=== PATIENT | female | born 1945 | race Two or more races ===

== ENCOUNTER → 2024-02-10 | Outpatient (CLI) | payer OTHER, SELFPAY ==
[2024-02-10 10:16] LABS: Glucose Estimated Average 180 mg/dL (80-131); Hemoglobin A1C 7.9 % Hgb (4.8-6.0)
[2024-02-10 10:35] LABS: Alanine Aminotransferase 17 U/L (10-49); Albumin, Serum 4.3 gm/dL (3.4-4.8); Alkaline Phosphatase 78 U/L (46-116); Anion Gap 4 (7-16); Aspartate Amino Transferase 13 U/L (0-34); BUN/Creatinine Ratio 16 Ratio (12-20); Bilirubin,Total 0.4 mg/dL (0.3-1.2); Blood Urea Nitrogen 24 mg/dL (9-23); Calcium 9.7 mg/dL (8.3-10.6); Calcium (Corrected) 9.7 mg/dL (8.5-10.1); Carbon Dioxide 31.7 mMol/L (20.0-31.0); Chloride 102 mMol/L (98-107); Creatinine (Component) 1.5 mg/dL (0.6-1.3); Globulin 2.2 gm/dL (2.3-3.5); Glucose 104 mg/dL (74-106); Osmolality,Calculated 279 (275-295); Potassium 3.7 mMol/L (3.4-5.1); Sodium 138 mMol/L (136-145); Total Protein 6.5 gm/dL (5.7-8.2); eGFR 36 See Note
== END | disposition home or self-care (01) ==
PROVIDERS: PCP Family Medicine; Referring Provider Internal Medicine; Visit Provider Internal Medicine
DX: E11.65 Type 2 diabetes mellitus with hyperglycemia (principal)
CPT/HCPCS: 36415; 80053; 83036

== ENCOUNTER → 2024-03-10 | Outpatient (CLI) | payer OTHER, SELFPAY ==
[2024-03-10 16:13] LABS: Basophils % (Auto) 1 % (0-2.5); Eosinophils # (Auto) 0.2 Thou/mm3 (0.0-0.5); Eosinophils % (Auto) 3 % (0-10); Hematocrit 34.3 % (36.0-46.0); Hemoglobin 11.2 g/dL (12.0-16.0); Immature Granulocytes % (Auto) 0 % (0-0); Immature Granulocytes Auto 0.01 Thou/mm3 (0.00-0.00); Lymphocytes # (Auto) 0.9 Thou/mm3 (1.0-4.8); Lymphocytes % (Auto) 13 % (10-50); Mean Corpuscular HGB Conc 32.7 g/dl (31.0-37.0); Mean Corpuscular Hemoglobin 30.4 pg (25.0-35.0); Mean Corpuscular Volume 93 fL (80-100); Monocytes # (Auto) 0.5 Thou/mm3 (0.0-0.8); Monocytes % (Auto) 7 % (0-12); Neutrophils # (Auto) 5.1 Thou/mm3 (1.8-7.7); Neutrophils % (Auto) 76 % (37-80); Nucleated Red Blood Cell % 0 /100 WBC (0); Platelet Count 188 Thou/mm3 (140-440); RDW Standard Deviation 45.1 fL (36.4-46.3); Red Blood Count 3.69 Miln/mm3 (4.00-5.20); White Blood Count 6.7 Thou/mm3 (3.6-11.0)
[2024-03-10 16:34] LABS: Alanine Aminotransferase 22 U/L (10-49); Albumin, Serum 4.7 gm/dL (3.4-4.8); Alkaline Phosphatase 81 U/L (46-116); Anion Gap 8 (7-16); Aspartate Amino Transferase 26 U/L (0-34); BUN/Creatinine Ratio 17 Ratio (12-20); Bilirubin,Total 0.4 mg/dL (0.3-1.2); Blood Urea Nitrogen 29 mg/dL (9-23); Calcium 9.7 mg/dL (8.3-10.6); Calcium (Corrected) 9.7 mg/dL (8.5-10.1); Carbon Dioxide 30.1 mMol/L (20.0-31.0); Chloride 98 mMol/L (98-107); Creatinine (Component) 1.7 mg/dL (0.6-1.3); Globulin 2.4 gm/dL (2.3-3.5); Glucose 255 mg/dL (74-106); Osmolality,Calculated 286 (275-295); Potassium 3.8 mMol/L (3.4-5.1); Sodium 136 mMol/L (136-145); Total Protein 7.1 gm/dL (5.7-8.2); eGFR 31 See Note
[2024-03-20 19:51] LABS: Albumin 3.7 g/dL (3.8-4.8); Alpha-1-Globulin 0.3 g/dL (0.2-0.3); Beta-1-Globulin 0.4 g/dL (0.4-0.6); Beta-2-globulin 0.3 g/dL (0.2-0.5); Gamma Globulin 0.8 g/dL (0.8-1.7); Kappa Light Chain, Free 572.7 mg/L (3.3-19.4); Lambda Light Chain, Free 23.3 mg/L (5.7-26.3)
[2024-03-21 07:00] LABS: IgA, Serum* 134 mg/dL (70-320); IgG, Serum* 1029 mg/dL (600-1540); IgM, Serum* 17 mg/dL (50-300); Kappa/Lambda, Free Ratio 24.58 (0.26-1.65); Protein, total, serum 6.6 g/dL (6.1-8.1)
== END | disposition home or self-care (01) ==
PROVIDERS: PCP Family Medicine; Referring Provider Internal Medicine Hematology; Visit Provider Internal Medicine Hematology
DX: D47.2 Monoclonal gammopathy (principal); C90.00 Multiple myeloma not having achieved remission
CPT/HCPCS: 36415; 80053; 82784; 83521; 84155; 84165; 85025

== ENCOUNTER → 2024-06-24 | Outpatient (CLI) | payer OTHER, SELFPAY ==
[2024-06-24 14:43] LABS: Misc Send Out* See Sep Rpt
[2024-06-24 15:01] LABS: Collection Type, Urine Clean Catch
[2024-06-24 15:22] LABS: Basophils % (Auto) 1 % (0-2.5); Eosinophils # (Auto) 0.2 Thou/mm3 (0.0-0.5); Eosinophils % (Auto) 3 % (0-10); Hemoglobin 10.8 g/dL (12.0-16.0); Immature Granulocytes % (Auto) 0 % (0-0); Immature Granulocytes Auto 0.01 Thou/mm3 (0.00-0.00); Immature Reticulocyte Fraction 12.3 % (3.0-15.9); Lymphocytes # (Auto) 0.9 Thou/mm3 (1.0-4.8); Lymphocytes % (Auto) 15 % (10-50); Mean Corpuscular HGB Conc 32.7 g/dl (31.0-37.0); Mean Corpuscular Hemoglobin 29.6 pg (25.0-35.0); Mean Corpuscular Volume 90 fL (80-100); Monocytes # (Auto) 0.6 Thou/mm3 (0.0-0.8); Monocytes % (Auto) 10 % (0-12); Neutrophils # (Auto) 4.4 Thou/mm3 (1.8-7.7); Neutrophils % (Auto) 72 % (37-80); Nucleated Red Blood Cell % 0 /100 WBC (0); Platelet Count 245 Thou/mm3 (140-440); RDW Standard Deviation 46.2 fL (36.4-46.3); Red Blood Count 3.65 Miln/mm3 (4.00-5.20); Reticulocyte % (Auto) 1.5 % (0.5-1.5); Reticulocyte Absolute Auto 54.8 Biln/L (25.0-75.0); Reticulocyte Hgb Content 34.1 pg (28.0-35.0)
[2024-06-24 15:30] LABS: Bilirubin,Urine Negative (Negative); Blood,Urine Negative (Negative); Clarity,Urine Clear (Clear/Hazy); Color,Urine Lt-Yellow (Lt Yel-Yel); Glucose, Urine Negative (Negative); Hyaline Casts,Urine < 1 /hpf (0-1); Ketones,Urine Negative (Negative); Leukocyte Esterase,Urine Negative (Negative); Nitrite,Urine Negative (Negative); PH,Urine 6.5 (5.0-7.0); Protein,Urine Trace (Neg - Trace); RBC,Urine 2 /hpf (0-3); Specific Gravity,Urine 1.012 (1.001-1.035); Squamous Epithelial Cell,Urine 3 /hpf (0-5); Urobilinogen,Urine Negative mg/dL (0.0-1.0); WBC,Urine < 1 /hpf (0-5)
[2024-06-24 15:37] LABS: Creatinine,Random Urine 39 mg/dL (30-125); Protein Total, Random Urine 35 mg/dL (1-14)
[2024-06-24 15:37] LABS: Parathyroid Hormone Intact 76.1 pg/ml (18.5-88.0)
[2024-06-24 15:40] LABS: Alanine Aminotransferase 20 U/L (10-49); Albumin, Serum 4.5 gm/dL (3.4-4.8); Alkaline Phosphatase 80 U/L (46-116); Anion Gap 11 (7-16); Aspartate Amino Transferase 23 U/L (0-34); BUN/Creatinine Ratio 17 Ratio (12-20); Bilirubin,Total 0.4 mg/dL (0.3-1.2); Blood Urea Nitrogen 25 mg/dL (9-23); Calcium 9.9 mg/dL (8.3-10.6); Calcium (Corrected) 9.9 mg/dL (8.5-10.1); Carbon Dioxide 28.8 mMol/L (20.0-31.0); Chloride 101 mMol/L (98-107); Creatinine (Component) 1.5 mg/dL (0.6-1.3); Glucose 146 mg/dL (74-106); Magnesium 2.6 mg/dL (1.6-2.6); Osmolality,Calculated 288 (275-295); Phosphorous 3.8 mg/dL (2.4-5.1); Potassium 3.8 mMol/L (3.4-5.1); Sodium 141 mMol/L (136-145); Total Protein 7.3 gm/dL (5.7-8.2); eGFR 35 See Note
[2024-06-24 15:41] LABS: Vitamin B12 879 pg/mL (211-911); Vitamin D 25 Hydroxy Total 40.5 ng/mL (7.3-40.2)
[2024-06-24 16:23] LABS: Ferritin 107 ng/mL (7.3-270.7); Iron 34 mcg/dL (50-170); Percent Iron Saturation 11 % (20-55); Total Iron Binding Capacity 303 mcg/dL (250-425); Unsaturated Iron Binding 269 (225-295)
== END | disposition home or self-care (01) ==
LOC: COPL 14:16
PROVIDERS: PCP Family Medicine; Referring Provider Internal Medicine Nephrology; Visit Provider Internal Medicine Nephrology
DX: E55.9 Vitamin D deficiency, unspecified (principal); I10 Essential (primary) hypertension; E11.22 Type 2 diabetes mellitus with diabetic chronic kidney disease
CPT/HCPCS: 36415; 80069; 81001; 82247; 82306; 82570; 82607; 82728; 82746; 83540; 83550; 83735; 83970; 84075; 84155; 84156; 84450; 84460; 85025; 85046; 87086

== ENCOUNTER → 2024-07-11 | Outpatient (CLI) | payer OTHER, SELFPAY ==
[2024-07-11 08:42] LABS: Glucose Estimated Average 154 mg/dL (80-131)
[2024-07-11 08:51] LABS: Alanine Aminotransferase 24 U/L (10-49); Albumin, Serum 4.2 gm/dL (3.4-4.8); Albumin/Globulin Ratio 1.6 (1.2-2.2); Alkaline Phosphatase 84 U/L (46-116); Anion Gap 10 (7-16); Aspartate Amino Transferase 23 U/L (0-34); BUN/Creatinine Ratio 18 Ratio (12-20); Bilirubin,Total 0.4 mg/dL (0.3-1.2); Blood Urea Nitrogen 23 mg/dL (9-23); Calcium 9.5 mg/dL (8.3-10.6); Calcium (Corrected) 9.5 mg/dL (8.5-10.1); Carbon Dioxide 26.7 mMol/L (20.0-31.0); Cardiac Risk Estimate 2.1 RATIO (3.7-5.6); Chloride 105 mMol/L (98-107); Cholesterol 125 mg/dL (132-200); Creatinine (Component) 1.3 mg/dL (0.6-1.3); Globulin 2.7 gm/dL (2.3-3.5); Glucose 96 mg/dL (74-106); HDL Cholesterol 59 mg/dL (40-60); LDL Cholesterol,Calculated 55 mg/dL (0-130); Osmolality,Calculated 286 (275-295); Potassium 4.1 mMol/L (3.4-5.1); Sodium 142 mMol/L (136-145); Total Protein 6.9 gm/dL (5.7-8.2); Triglycerides 54 mg/dL (30-150); eGFR 42 See Note
== END | disposition home or self-care (01) ==
PROVIDERS: PCP Family Medicine; Referring Provider Internal Medicine; Visit Provider Internal Medicine
DX: E11.65 Type 2 diabetes mellitus with hyperglycemia (principal)
CPT/HCPCS: 36415; 80053; 80061; 83036

== ENCOUNTER → 2024-08-25 | Outpatient (CLI) | payer OTHER, SELFPAY ==
[2024-08-25 11:51] LABS: Glucose Estimated Average 151 mg/dL (80-131); Hemoglobin A1C 6.9 % Hgb (4.8-6.0)
[2024-08-25 11:56] LABS: Alanine Aminotransferase 24 U/L (10-49); Albumin, Serum 4.2 gm/dL (3.4-4.8); Albumin/Globulin Ratio 1.7 (1.2-2.2); Alkaline Phosphatase 79 U/L (46-116); Anion Gap 9 (7-16); Aspartate Amino Transferase 26 U/L (0-34); BUN/Creatinine Ratio 17 Ratio (12-20); Bilirubin,Total 0.4 mg/dL (0.3-1.2); Blood Urea Nitrogen 26 mg/dL (9-23); Calcium 8.8 mg/dL (8.3-10.6); Calcium (Corrected) 8.8 mg/dL (8.5-10.1); Carbon Dioxide 30.2 mMol/L (20.0-31.0); Chloride 102 mMol/L (98-107); Creatinine (Component) 1.5 mg/dL (0.6-1.3); Globulin 2.5 gm/dL (2.3-3.5); Glucose 255 mg/dL (74-106); Osmolality,Calculated 294 (275-295); Potassium 3.8 mMol/L (3.4-5.1); Sodium 141 mMol/L (136-145); Total Protein 6.7 gm/dL (5.7-8.2); eGFR 35 See Note
== END | disposition home or self-care (01) ==
LOC: COPL 10:33
PROVIDERS: PCP Family Medicine; Referring Provider Internal Medicine Endocrinology, Diabetes & Metabolism; Visit Provider Internal Medicine
DX: E11.65 Type 2 diabetes mellitus with hyperglycemia (principal)
CPT/HCPCS: 36415; 80053; 83036

== ENCOUNTER 2024-12-12 09:55 | Day surgery (SDC) | payer OTHER, SELFPAY ==
[2024-12-12] VITALS (12 sets, daily range): BP systolic 107–163; BP diastolic 52–79; PULSE 61–74; RESP 15–19; TEMP 36.6–37.1; O2SAT 97–100; BMI 26.5
[2024-12-12] MEDS: SODIUM CHLORIDE 0.9% 500 ML 500 ML 20 ML IV (11:28)
[2024-12-12] MEDS: fentaNYL CIT INJ 50 mCg/ML AMP 2ML (ASD USE ONLY) IVP (11:39)
[2024-12-12] MEDS: MIDAZOLAM INJ 1 MG/ML VIAL 2 ML (ASD USE ONLY) 2 MG IVP (11:39)
--- NOTE | 2024-12-12 12:04 | SUR.PHASEII ---
1154 patient is sleepy and arousable, able to follow verbal commands, s/p colonoscopy by Dr. Solis, report received from Jacinda SPRINGER
--- NOTE | 2024-12-12 12:46 | SUR.PHASEII ---
1240 patient is awake, alert, breathing unlabored, discharge instructions given to patient and jerrod, patient discharged home in wheelchair with all belongings.
== END 2024-12-12 12:40 | disposition home or self-care (01) ==
PROVIDERS: PCP Family Medicine; Referring Provider Specialist; Visit Provider Specialist
PROC: 0DBE8ZX Excision of Large Intestine, Via Natural or Artificial Opening Endoscopic, Diagnostic (ICD-10-PCS; CPT 45380; principal; 2024-12-12 11:00)
DX: Z12.11 Encounter for screening for malignant neoplasm of colon (principal); D12.2 Benign neoplasm of ascending colon; K64.9 Unspecified hemorrhoids; K57.30 Diverticulosis of large intestine without perforation or abscess without bleeding; E10.9 Type 1 diabetes mellitus without complications; I10 Essential (primary) hypertension; E78.5 Hyperlipidemia, unspecified; Z79.899 Other long term (current) drug therapy
CPT/HCPCS: 45385; A4649; J1200; J2250; J3010; J7999

== ENCOUNTER 2024-12-21 11:05 | Emergency (ER) | payer OTHER, SELFPAY ==
[2024-12-21] VITALS (7 sets, daily range): BP systolic 122–174; BP diastolic 52–78; PULSE 70–85; RESP 17–20; TEMP 36.4–36.7; O2SAT 97–99; BMI 25.2
--- NOTE | 2024-12-21 11:35 | PC.NURSE ---
Pt. was visiting her son, pt. accidentally gave herself 22 units of Novolog insulin and she was supposed to give herself 2 units. Son saw pt. do this and called 911. Son gave pt. a full cup of cranberry juice. Pt. states on Dec.12 she had a colonoscopy done, pt. states she's not aware of the results. Pt. states she feels fine at this time. No s/s of distress noted at this time.
--- NOTE | 2024-12-21 11:39 | EKG_ITS ---
[facility] Test Date: 2024-12-21 Pat Name: CARLOS CASTRO Department: Room: - Gender: Female Senior Front End Engineer: : [id number] Requested By: Ree Balderas Order Number: [id number] Reading MD: Ree Balderas Measurements Intervals [place] Rate: 76 P: 28 [place]: 192 QRS: -33 QRSD: 174 T: 117 QT: 468 QTc: 527 Interpretive Statements SINUS RHYTHM LEFT AXIS DEVIATION [QRS AXIS < -30] LEFT BUNDLE BRANCH BLOCK [120+ ms QRS DURATION, 80+ ms Q/S IN V1/V2, 85+ ms R IN I/aVL/V5/V6] No previous ECG available for comparison /store/S0/[id number].pdf
--- NOTE | 2024-12-21 11:40 | PC.NURSE ---
Pt. given grape juice and anjelica crackers with peanut butter. Pt. states thank you, tolerating well.
--- NOTE | 2024-12-21 11:41 | PD.EDADULT ---
ED General RME/HPI General Chief complaint: Overdose Stated complaint: OVERDOSE Time Seen by Provider: 12/21/24 11:07 Arrival date/time: 12/21/24 11:05 RME / HPI RME / HPI narrative: 79 year old female with history of hypertension, diabetes, hyperlipidemia presents to the ED BIBA from home for overdosing on her insulin today. Patient states she takes 22 units of Humalog insulin (before breakfast and dinner) and 5 units of Levemir QDAY. However, this morning mistakenly administered 22 units of Levemir instead of Humalog. In the ED, she reports feeling confused and fatigued. No other associated symptoms reported. Denies fevers, chest pain, cough, shortness of breath, abdominal pain, nausea, vomiting, or urinary symptoms. Related Data Home Medications ?Medication ?Instructions ?Recorded ?Confirmed ferrous sulfate 325 mg (65 mg 325 mg PO QDAY #0 tabs 06/24/16 12/12/24 iron) tablet (Feosol) insulin detemir U-100 100 unit/mL 28 unit subcut QPM #0 vials 06/24/16 03/09/18 subcutaneous solution (Levemir U-100 Insulin) lovastatin 20 mg tablet 20 mg PO HS #0 tabs 06/24/16 12/12/24 insulin detemir U-100 100 unit/mL 30 unit subcut DAILY 03/09/18 04/14/18 (3 mL) subcutaneous pen (Levemir FlexTouch U-100 Insulin) insulin lispro 100 unit/mL See Rx Instructions .Route .COMPLEX 03/09/18 03/09/18 subcutaneous pen (Humalog KwikPen (U-100) Insulin) losartan 25 mg tablet 25 mg PO QDAY 03/09/18 12/12/24 tramadol 50 mg tablet 50 mg PO QID PRN Pain 03/09/18 12/12/24 valsartan 160 mg tablet 1 tab PO QDAY 04/14/18 12/12/24 docusate sodium 100 mg capsule 100 mg PO QDAY 12/12/24 12/12/24 gabapentin 100 mg capsule 100 mg PO BID 12/12/24 12/12/24 loratadine 10 mg tablet 10 mg PO QDAY 12/12/24 12/12/24 (Allerclear) magnesium 250 mg tablet 250 mg PO HS 12/12/24 12/12/24 Previous Rx's ?Medication ?Instructions ?Recorded sulfamethoxazole 800 1 tab PO BID #6 tabs 12/21/24 mg-trimethoprim 160 mg tablet (Bactrim DS) Allergies Allergy/AdvReac Type Severity Reaction Status Date / Time hydrocodone Allergy Severe ANXIETY Verified 12/21/24 11:12 ibuprofen Allergy Mild Abdominal Verified 12/21/24 11:12 Pain morphine Allergy Anxiety Verified 12/21/24 11:12 Review of Systems Review of Systems Systems Reviewed: All systems reviewed, normal except as documented Past Medical History Past Medical History NEUROLOGIC: Positive Neurological Disorders and Dementia (mild, just started per daughter) CARDIAC: Positive Cardiac Disorders, Hypercholesterolemia and Hypertension GENITOURINARY: Positive Genitourinary Disorders REPRODUCTIVE: Positive Previous Pregnancies MUSCULOSKELETAL: Positive Musculoskeletal Disorders and Arthritis ENDOCRINE: Positive Endocrine Disorders and Diabetes Mellitus Type 2 HEMATOLOGIC: Positive Blood Disorders, Anemia and Leukemia OTHER HISTORY: Positive Chemotherapy, Radiation Therapy and Cancer (leukemia) Surgical History SURGICAL: Positive Oral Surgery, Open Reduction Internal Fixation and Hysterectomy Social History SMOKING STATUS: Never smoker ED Exam Narrative Physical exam: GENERAL APPEARANCE: alert and oriented x 4 though appears confused, well-developed, well-nourished HEENT: Normocephalic, atraumatic; pupils equal, round, reactive to light; EOMI; mucous membranes pink, moist; oropharynx clear NECK: Supple LUNGS: CTABL; no wheezes, no rales, no rhonchi HEART: Regular rate, regular rhythm; normal S1, S2; no murmurs ABDOMEN: non distended; normal BS; soft, no tenderness, no guarding, no rebound; no masses, no organomegaly, no hernia BACK: no CVA tenderness EXTREMITIES: atraumatic; no edema NEUROLOGIC: awake; alert and oriented x4 though appears mildly confused; cranial nerves II-XII grossly intact; no focal sensory or motor deficits PSYCHIATRIC: appropriate mood and affect SKIN: warm, dry, normal color; no rashes Course Quality Measures none Orders Category Date Time Status Bedside Blood Glucose Q1HR Care 12/21/24 11:07 Active [employer] Technician NOW Care 12/21/24 11:39 Active EKG (ED ONLY) *Do not use* NOW Care 12/21/24 11:39 Completed EKG (ED Only) Stat Exams 12/21/24 11:39 Draft B-Type Natriuretic Peptide Stat Lab 12/21/24 12:05 Completed CBC Stat Lab 12/21/24 12:05 Completed Comprehensive Metabolic Panel Stat Lab 12/21/24 12:05 Completed Magnesium Stat Lab 12/21/24 12:05 Completed Partial Thromboplastin Time Stat Lab 12/21/24 12:05 Completed Prothrombin Time with INR Stat Lab 12/21/24 12:05 Completed Troponin I Stat Lab 12/21/24 12:05 Completed UA, C/S IF [Urinalysis, C/S if Indicated] Stat Lab 12/21/24 13:19 Completed Urine Culture Stat Lab 12/21/24 13:19 Received KCL 10% Liq UDC 15 ML Med 12/21/24 15:00 Discontinued 40 meq PO X1 ONE Potassium Chloride [K-Dur] Med 12/21/24 15:04 Discontinued 20 meq PO X1 ONE Trimethoprim/Sulfa 160/800 Ds [Bactrim Ds] Med 12/21/24 15:00 Discontinued 1 tab PO X1 ONE Vital Signs Vital signs: Vital Signs Temperature 97.9 F 12/21/24 11:13 Pulse Rate 79 12/21/24 11:13 Respiratory Rate 19 12/21/24 11:13 Blood Pressure 173/78 H 12/21/24 11:13 Pulse Oximetry (%) 98 12/21/24 11:13 Oxygen Delivery Method Room Air 12/21/24 11:13 Pulse ox is 98% on room air which is adequate. Discharge Plan Plan Patient Disposition: HOME (Self Care) Prescriptions/Referrals Prescriptions/Med Rec: New sulfamethoxazole-trimethoprim [Bactrim DS] 800-160 mg tablet 1 tab PO BID Qty: 6 0RF No Action lovastatin 20 MG tablet 20 mg PO HS Qty: 0 ferrous sulfate [Feosol] 1 TAB tablet 325 mg PO QDAY Qty: 0 insulin detemir U-100 [Levemir U-100 Insulin] 100 U/ML solution 28 unit Sub-Q QPM Qty: 0 tramadol 50 mg Tablet 50 mg PO QID PRN (Reason: Pain) losartan 25 mg Tablet 25 mg PO QDAY insulin lispro [Humalog KwikPen Insulin] 100 unit/mL Insulin Pen See Rx Instructions .ROUTE .COMPLEX Rx Instructions: SLIDING SCALE insulin detemir U-100 [Levemir FlexTouch U100 Insulin] 100 unit/mL (3 mL) Insulin Pen 30 unit SUBCUT DAILY valsartan 160 mg Tablet 1 tab PO QDAY magnesium 250 mg tablet 250 mg PO HS gabapentin 100 mg capsule 100 mg PO BID loratadine [Allerclear] 10 mg tablet 10 mg PO QDAY docusate sodium 100 mg capsule 100 mg PO QDAY Referrals: No Primary/Family,Physician [Primary Care Provider] - In 1 week Problem List Clinical Impression: Accidental drug overdose, Hypokalemia, UTI (urinary tract infection) Patient/Caregiver Discharge Instructions Education Materials: ED CYSTITIS Female Adult Print Language: Spanish Stand Alone Forms: Aminata Award Info., Patient Portal Info Letter MDM Narrative [facility] hospital course: Kaitlin Ross am scribing for and in the presence of Dr. Cunningham. Patients glucose through ED visit has remained stable. 11:13h bedside FSBS 210 11:35h bedside FSBS 169 12:40h bedside FSBS 85 15:00h bedside FSBS 159 Clinical Information Provided by patient and EMS Medical Records Reviewed [facility] and EMS Meds/Rx Considered, not Ordered None Labs/Rad/Tests considered, not Ordered None Chronic Illness/Social Conditions which may negatively complicate care or outcome(s)-explain: None or not applicable EKG EKG Interpretation narrative: EKG @ 11:54 AM. NSR, rate 76, LAD, LBBB. Lab Interpretation Lab(s) interpretation(s): CBC within normal limits PT/PTT within normal limits Potassium 3.0, glucose 108 UA positive for UTI Imaging Imaging interpretation: none Medication Administration(s) Medication Administration History Discontinued Medications Potassium Chloride (Potassium Chloride 10% 20 Meq/15 Ml Udc) 40 meq PO X1 ONE Stop: 12/21/24 15:01 Last Admin: 12/21/24 15:07 Dose: Not Given Documented By: Non-Admin Reason: Discontinued Potassium Chloride (Potassium Chloride 20 Meq Tabcr) 20 meq PO X1 ONE Stop: 12/21/24 15:05 Last Admin: 12/21/24 15:11 Dose: 20 meq Documented By: VALENTINE Trimethoprim/Sulfamethoxazole (Trimethoprim/Sulfa 160/800 Ds Tablet) 1 tab PO X1 ONE Stop: 12/21/24 15:01 Last Admin: 12/21/24 15:10 Dose: 1 tab Documented By: GM See above Diagnosis Most likely dx, and/or detailed dx discussion: Accidental drug overdose Hypokalemia UTI Dispositon Disposition: Discharge Home
--- NOTE | 2024-12-21 11:48 | PC.NURSE ---
Pt. son bedside.
--- NOTE | 2024-12-21 12:26 | PC.NURSE ---
Informed pt. urine sample is needed, pt. states she is unable to urinate at this time. Pt. son is bedside.
[2024-12-21 12:39] LABS: Basophils # (Auto) 0.0 Thou/mm3 (0.0-0.2); Basophils % (Auto) 0 % (0-2.5); Eosinophils # (Auto) 0.1 Thou/mm3 (0.0-0.5); Eosinophils % (Auto) 1 % (0-10); Hematocrit 33.2 % (36.0-46.0); Hemoglobin 10.6 g/dL (12.0-16.0); Immature Granulocytes Auto 0.03 Thou/mm3 (0.00-0.00); Lymphocytes # (Auto) 0.9 Thou/mm3 (1.0-4.8); Lymphocytes % (Auto) 14 % (10-50); Mean Corpuscular HGB Conc 31.9 g/dl (31.0-37.0); Mean Corpuscular Hemoglobin 29.6 pg (25.0-35.0); Mean Corpuscular Volume 93 fL (80-100); Monocytes # (Auto) 0.5 Thou/mm3 (0.0-0.8); Monocytes % (Auto) 7 % (0-12); Neutrophils # (Auto) 5.3 Thou/mm3 (1.8-7.7); Neutrophils % (Auto) 77 % (37-80); Nucleated Red Blood Cell # 0.00 Thou/mm3 (0.00-0.00); Nucleated Red Blood Cell % 0 /100 WBC (0); Platelet Count 239 Thou/mm3 (140-440); RDW Standard Deviation 44.6 fL (36.4-46.3); Red Blood Count 3.58 Miln/mm3 (4.00-5.20); White Blood Count 6.9 Thou/mm3 (3.6-11.0)
[2024-12-21 12:40] LABS: INR 1.0 (0.9-1.3); Partial Thromboplastin Time 26.2 Seconds (22.0-36.0); Prothrombin Time 11.2 Seconds (9.0-12.2)
[2024-12-21 12:42] LABS: B-Type Natriuretic Peptide 43 pg/mL (0-100)
[2024-12-21 12:43] LABS: Alanine Aminotransferase 15 U/L (10-49); Albumin, Serum 4.4 gm/dL (3.4-4.8); Albumin/Globulin Ratio 1.8 (1.2-2.2); Alkaline Phosphatase 67 U/L (46-116); Anion Gap 10 (7-16); Aspartate Amino Transferase 19 U/L (0-34); BUN/Creatinine Ratio 13 Ratio (12-20); Bilirubin,Total 0.3 mg/dL (0.3-1.2); Blood Urea Nitrogen 20 mg/dL (9-23); Calcium 9.7 mg/dL (8.3-10.6); Calcium (Corrected) 9.7 mg/dL (8.5-10.1); Carbon Dioxide 30.3 mMol/L (20.0-31.0); Chloride 102 mMol/L (98-107); Creatinine (Component) 1.6 mg/dL (0.6-1.3); Globulin 2.4 gm/dL (2.3-3.5); Glucose 108 mg/dL (74-106); Magnesium 2.0 mg/dL (1.6-2.6); Osmolality,Calculated 286 (275-295); Potassium 3.0 mMol/L (3.4-5.1); Sodium 142 mMol/L (136-145); Total Protein 6.8 gm/dL (5.7-8.2); Troponin I < 0.020 ng/mL (0.0-0.045); eGFR 33 See Note
--- NOTE | 2024-12-21 12:45 | PC.NURSE ---
Applesauce, grape juice and ham sandwich given to pt., pt. eating applesauce, son bedside states he will make sure pt. eats all of it. Pt. tolerating well.
[2024-12-21 13:41] LABS: Collection Type, Urine Clean Catch
[2024-12-21 13:50] LABS: Bacteria,Urine Rare; Bilirubin,Urine Negative (Negative); Blood,Urine 1+ (Negative); Clarity,Urine Turbid (Clear/Hazy); Color,Urine Lt-Yellow (Lt Yel-Yel); Glucose, Urine Negative (Negative); Ketones,Urine Negative (Negative); Leukocyte Esterase,Urine Positive (Negative); Nitrite,Urine Positive (Negative); PH,Urine 7.5 (5.0-7.0); Protein,Urine 1+ (Neg - Trace); RBC,Urine 3 /hpf (0-3); Specific Gravity,Urine 1.009 (1.001-1.035); Squamous Epithelial Cell,Urine < 1 /hpf (0-5); Urobilinogen,Urine Negative mg/dL (0.0-1.0); WBC,Urine 100 /hpf (0-5)
[2024-12-21 13:53] LABS: Culture Indicated,Urine Yes
--- NOTE | 2024-12-21 14:26 | PC.NURSE ---
Pt. cold 2 warm blankets given, water given to pt.'s son.
[2024-12-21] MEDS: TRIMETHOPRIM/SULFA 160/800 DS TABLET 1 TAB PO (15:10)
== END 2024-12-21 16:55 | disposition home or self-care (01) ==
PROVIDERS: Emergency Provider Emergency Medicine
DX: T50.901A Poisoning by unspecified drugs, medicaments and biological substances, accidental (unintentional), initial encounter (principal); E87.6 Hypokalemia; N39.0 Urinary tract infection, site not specified; E11.9 Type 2 diabetes mellitus without complications; E78.5 Hyperlipidemia, unspecified; I10 Essential (primary) hypertension
CPT/HCPCS: 36415; 80053; 81001; 83735; 83880; 84484; 85025; 85610; 85730; 87077; 87086; 87186; 93005; 96127; 99283; A9270

== ENCOUNTER → 2024-12-23 | Outpatient (CLI) | payer OTHER, SELFPAY ==
[2024-12-23 12:33] LABS: Collection Type, Urine Clean Catch
[2024-12-23 13:21] LABS: Basophils # (Auto) 0.0 Thou/mm3 (0.0-0.2); Basophils % (Auto) 1 % (0-2.5); Eosinophils # (Auto) 0.1 Thou/mm3 (0.0-0.5); Eosinophils % (Auto) 2 % (0-10); Hematocrit 34.8 % (36.0-46.0); Hemoglobin 11.1 g/dL (12.0-16.0); Immature Granulocytes Auto 0.02 Thou/mm3 (0.00-0.00); Immature Reticulocyte Fraction 14.2 % (3.0-15.9); Lymphocytes # (Auto) 0.9 Thou/mm3 (1.0-4.8); Lymphocytes % (Auto) 14 % (10-50); Mean Corpuscular HGB Conc 31.9 g/dl (31.0-37.0); Mean Corpuscular Hemoglobin 29.6 pg (25.0-35.0); Mean Corpuscular Volume 93 fL (80-100); Monocytes # (Auto) 0.4 Thou/mm3 (0.0-0.8); Monocytes % (Auto) 7 % (0-12); Neutrophils # (Auto) 4.6 Thou/mm3 (1.8-7.7); Neutrophils % (Auto) 76 % (37-80); Nucleated Red Blood Cell # 0.00 Thou/mm3 (0.00-0.00); Nucleated Red Blood Cell % 0 /100 WBC (0); Platelet Count 241 Thou/mm3 (140-440); RDW Standard Deviation 43.6 fL (36.4-46.3); Red Blood Count 3.75 Miln/mm3 (4.00-5.20); Reticulocyte % (Auto) 1.1 % (0.5-1.5); Reticulocyte Absolute Auto 40.5 Biln/L (25.0-75.0); Reticulocyte Hgb Content 35.6 pg (28.0-35.0); White Blood Count 6.1 Thou/mm3 (3.6-11.0)
[2024-12-23 13:30] LABS: Bilirubin,Urine Negative (Negative); Blood,Urine 1+ (Negative); Clarity,Urine Clear (Clear/Hazy); Color,Urine Colorless (Lt Yel-Yel); Glucose, Urine 2+ (Negative); Ketones,Urine Negative (Negative); Leukocyte Esterase,Urine Negative (Negative); Nitrite,Urine Negative (Negative); PH,Urine 6.5 (5.0-7.0); Protein,Urine Trace (Neg - Trace); RBC,Urine 2 /hpf (0-3); Specific Gravity,Urine 1.010 (1.001-1.035); Squamous Epithelial Cell,Urine 1 /hpf (0-5); Urobilinogen,Urine Negative mg/dL (0.0-1.0); WBC,Urine 4 /hpf (0-5)
[2024-12-23 13:36] LABS: Alanine Aminotransferase 19 U/L (10-49); Albumin, Serum 4.4 gm/dL (3.4-4.8); Alkaline Phosphatase 71 U/L (46-116); Anion Gap 9 (7-16); Aspartate Amino Transferase 24 U/L (0-34); BUN/Creatinine Ratio 11 Ratio (12-20); Bilirubin,Total 0.4 mg/dL (0.3-1.2); Blood Urea Nitrogen 21 mg/dL (9-23); Calcium 9.6 mg/dL (8.3-10.6); Calcium (Corrected) 9.6 mg/dL (8.5-10.1); Carbon Dioxide 29.9 mMol/L (20.0-31.0); Chloride 99 mMol/L (98-107); Creatinine (Component) 2.0 mg/dL (0.6-1.3); Glucose 367 mg/dL (74-106); Magnesium 2.1 mg/dL (1.6-2.6); Osmolality,Calculated 293 (275-295); Parathyroid Hormone Intact 125.2 pg/ml (18.5-88.0); Phosphorous 2.5 mg/dL (2.4-5.1); Potassium 3.5 mMol/L (3.4-5.1); Sodium 138 mMol/L (136-145); Total Protein 6.8 gm/dL (5.7-8.2); Uric Acid 5.7 mg/dL (3.1-7.8); eGFR 25 See Note
[2024-12-23 13:37] LABS: Creatinine,Random Urine 38 mg/dL (30-125); Protein Total, Random Urine 58 mg/dL (1-14)
[2024-12-23 13:40] LABS: Folate 18.19 ng/mL (>5.38); Vitamin B12 893 pg/mL (211-911); Vitamin D 25 Hydroxy Total 54.0 ng/mL (7.3-40.2)
[2024-12-23 13:42] LABS: Ferritin 135 ng/mL (7.3-270.7); Iron 78 mcg/dL (50-170); Percent Iron Saturation 28 % (20-55); Total Iron Binding Capacity 277 mcg/dL (250-425); Unsaturated Iron Binding 199 (225-295)
== END | disposition home or self-care (01) ==
LOC: COPL 11:52
PROVIDERS: PCP Family Medicine; Referring Provider Internal Medicine Nephrology; Visit Provider Internal Medicine Nephrology
DX: E11.22 Type 2 diabetes mellitus with diabetic chronic kidney disease (principal); N18.32 Chronic kidney disease, stage 3b; D63.1 Anemia in chronic kidney disease; E78.5 Hyperlipidemia, unspecified; F12.90 Cannabis use, unspecified, uncomplicated; N39.0 Urinary tract infection, site not specified; M10.9 Gout, unspecified; E55.9 Vitamin D deficiency, unspecified
CPT/HCPCS: 36415; 80069; 81001; 82247; 82306; 82570; 82607; 82728; 82746; 83540; 83550; 83735; 83970; 84075; 84155; 84156; 84450; 84460; 84550; 85025; 85046; 87086

== ENCOUNTER → 2025-03-08 | Outpatient (CLI) | payer OTHER, SELFPAY ==
[2025-03-08 13:20] LABS: Collection Type, Urine Clean Catch
[2025-03-08 13:22] LABS: Misc Send Out* See Sep Rpt
[2025-03-08 13:40] LABS: Basophils # (Auto) 0.0 Thou/mm3 (0.0-0.2); Basophils % (Auto) 0 % (0-2.5); Eosinophils # (Auto) 0.2 Thou/mm3 (0.0-0.5); Eosinophils % (Auto) 3 % (0-10); Hematocrit 31.7 % (36.0-46.0); Hemoglobin 9.9 g/dL (12.0-16.0); Immature Granulocytes Auto 0.02 Thou/mm3 (0.00-0.00); Immature Reticulocyte Fraction 15.0 % (3.0-15.9); Lymphocytes # (Auto) 0.8 Thou/mm3 (1.0-4.8); Lymphocytes % (Auto) 12 % (10-50); Mean Corpuscular HGB Conc 31.2 g/dl (31.0-37.0); Mean Corpuscular Hemoglobin 29.8 pg (25.0-35.0); Mean Corpuscular Volume 96 fL (80-100); Monocytes # (Auto) 0.8 Thou/mm3 (0.0-0.8); Monocytes % (Auto) 11 % (0-12); Neutrophils # (Auto) 5.1 Thou/mm3 (1.8-7.7); Neutrophils % (Auto) 74 % (37-80); Nucleated Red Blood Cell # 0.00 Thou/mm3 (0.00-0.00); Nucleated Red Blood Cell % 0 /100 WBC (0); Platelet Count 225 Thou/mm3 (140-440); RDW Standard Deviation 48.4 fL (36.4-46.3); Red Blood Count 3.32 Miln/mm3 (4.00-5.20); Reticulocyte % (Auto) 1.7 % (0.5-1.5); Reticulocyte Absolute Auto 55.1 Biln/L (25.0-75.0); Reticulocyte Hgb Content 34.1 pg (28.0-35.0); White Blood Count 6.9 Thou/mm3 (3.6-11.0)
[2025-03-08 13:40] LABS: Bilirubin,Urine Negative (Negative); Blood,Urine Trace (Negative); Clarity,Urine Clear (Clear/Hazy); Color,Urine Lt-Yellow (Lt Yel-Yel); Glucose, Urine 3+ (Negative); Hyaline Casts,Urine < 1 /hpf (0-1); Ketones,Urine Negative (Negative); Leukocyte Esterase,Urine Negative (Negative); Nitrite,Urine Negative (Negative); PH,Urine 6.0 (5.0-7.0); Protein,Urine 1+ (Neg - Trace); RBC,Urine 2 /hpf (0-3); Specific Gravity,Urine 1.013 (1.001-1.035); Squamous Epithelial Cell,Urine 3 /hpf (0-5); Urobilinogen,Urine Negative mg/dL (0.0-1.0); WBC,Urine < 1 /hpf (0-5)
[2025-03-08 13:48] LABS: Creatinine,Random Urine 46 mg/dL (30-125); Protein Total, Random Urine 64 mg/dL (1-14)
[2025-03-08 13:51] LABS: Alanine Aminotransferase 21 U/L (10-49); Albumin, Serum 4.6 gm/dL (3.4-4.8); Alkaline Phosphatase 75 U/L (46-116); Anion Gap 10 (7-16); Aspartate Amino Transferase 23 U/L (0-34); BUN/Creatinine Ratio 13 Ratio (12-20); Bilirubin,Total 0.3 mg/dL (0.3-1.2); Blood Urea Nitrogen 24 mg/dL (9-23); Calcium 9.3 mg/dL (8.3-10.6); Calcium (Corrected) 9.3 mg/dL (8.5-10.1); Carbon Dioxide 29.4 mMol/L (20.0-31.0); Chloride 101 mMol/L (98-107); Creatinine (Component) 1.8 mg/dL (0.6-1.3); Glucose 282 mg/dL (74-106); Magnesium 2.1 mg/dL (1.6-2.6); Osmolality,Calculated 293 (275-295); Phosphorous 3.7 mg/dL (2.4-5.1); Potassium 3.5 mMol/L (3.4-5.1); Sodium 140 mMol/L (136-145); Total Protein 7.0 gm/dL (5.7-8.2); eGFR 28 See Note
[2025-03-08 13:52] LABS: Ferritin 121 ng/mL (7.3-270.7); Iron 43 mcg/dL (50-170); Percent Iron Saturation 15 % (20-55); Total Iron Binding Capacity 278 mcg/dL (250-425); Unsaturated Iron Binding 235 (225-295)
[2025-03-08 13:54] LABS: Folate 20.82 ng/mL (>5.38); Vitamin B12 548 pg/mL (211-911); Vitamin D 25 Hydroxy Total 58.2 ng/mL (7.3-40.2)
== END | disposition home or self-care (01) ==
PROVIDERS: PCP Family Medicine; Referring Provider Internal Medicine Nephrology; Visit Provider Internal Medicine Nephrology
DX: I12.9 Hypertensive chronic kidney disease with stage 1 through stage 4 chronic kidney disease, or unspecified chronic kidney disease (principal); E11.22 Type 2 diabetes mellitus with diabetic chronic kidney disease; N18.4 Chronic kidney disease, stage 4 (severe); D63.1 Anemia in chronic kidney disease; N39.0 Urinary tract infection, site not specified; D50.9 Iron deficiency anemia, unspecified; E55.9 Vitamin D deficiency, unspecified; E78.5 Hyperlipidemia, unspecified
CPT/HCPCS: 36415; 80069; 81001; 82247; 82306; 82570; 82607; 82610; 82728; 82746; 83540; 83550; 83735; 84075; 84155; 84156; 84450; 84460; 85025; 85046; 87086